=== PATIENT | female | born 1970 | race Caucasian/White ===

== ENCOUNTER 2021-11-02 18:11 | Inpatient (IN) | payer MEDICARE, SELFPAY ==
[2021-11-02 18:17] VITALS: BMI 32.9
[2021-11-02 18:18] VITALS: BP 124/94; PULSE 84; RESP 18; TEMP 36.6; O2SAT 96
[2021-11-02 19:45] VITALS: BP 117/80; PULSE 104; RESP 16; TEMP 36.7; O2SAT 997
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
[2021-11-02] MEDS: gabapentin 400 mg Capsule PO (21:44)
[2021-11-02] MEDS: trazodone 100 mg Tablet PO (21:44)
[2021-11-02] MEDS: HYDROcodone-acetaminophen 5-325 mg Tablet 1 TAB PO (21:44)
[2021-11-03 06:00] VITALS: BP 126/82; PULSE 67; RESP 16; O2SAT 99
[2021-11-03] MEDS: HYDROcodone-acetaminophen 5-325 mg Tablet 1 TAB PO ×3 (08:52→20:35)
[2021-11-03] MEDS: cloNIDine 0.1 mg Tablet 0.2 MG PO (08:52)
[2021-11-03] MEDS: gabapentin 400 mg Capsule PO ×3 (08:53→20:33)
[2021-11-03] MEDS: valACYclovir 1,000 mg Tablet 500 MG PO (08:53)
[2021-11-03] MEDS: levothyroxine 112 mcg Tablet PO (08:53)
[2021-11-03] MEDS: lisinopril 20 mg Tablet PO (08:53)
[2021-11-03] MEDS: hydroCHLOROthiazide 25 mg Tablet PO (08:53)
[2021-11-03] MEDS: lamoTRIgine 100 mg Tablet 150 MG PO (08:54)
[2021-11-03] MEDS: potassium chloride ER 10 mEq Tablet PO (08:54)
[2021-11-03] MEDS: duloxetine 60 mg Capsule 120 MG PO (08:54)
[2021-11-03] MEDS: propranolol 20 mg Tablet PO ×2 (08:54→20:33)
--- NOTE | 2021-11-03 11:04 | W.PM.NPUH&PS ---
Providers/Chief Complaint Admitting Physician: Clarence Enriquez MD [facility] NPU History of Present Illness Gwen Flores is a 50 year old female who comes from an outside emergency department with the following report: Patient is a 50-year-old female who comes via police and presents for evaluation of suicidal ideation and suicidal plan.? It is unknown how the patient got to the emergency department today.? Patient states that she was taken off of her antipsychotic recently and has had increased feelings of suicide.? Patient has feelings of suicide chronically but today she developed a plan to overdose on medication pills.? Patient did not try to use this plan today.? She states that she has had 6 suicide attempts in the past and her mental illness managed by other providers.? Patient is okay on staying on psych hold if that is what she needs.? Patient has a history of anxiety depression and bipolar disease. She says that the problem is that she was on Latuda 80 mg which was working somewhat but not great. Unfortunately she had akathisia and they discontinued it because she has had difficulties with that in the past and has also had difficulties with tardive dyskinesia. Both Geodon and risperidone have caused tardive dyskinesia. She cannot really see it but many people have commented on her lips quivering and moving when she was on those 2 medications. She is also had akathisia from Geodon Abilizakiay and Saphris. Inderal was tried at one point for the akathisia but it was not helpful. Zyprexa and Seroquel were not effective. When the Latuda was discontinued she became very depressed and suicidal. She does not want to take Rexulti because she said in the reports that 9% of people had akathisia. She was on lithium for about 1 year with good benefit 10 or 12 years ago. She said it stopped working and she also developed a hand tremor. Propranolol was not tried for the hand tremor at that time. She is currently on lisinopril with hydrochlorothiazide which makes lithium was somewhat difficult choice. She was educated about the importance of maintaining the hydrochlorothiazide at a constant dose along with the lithium. The likelihood of finding an antipsychotic that would be tolerated are somewhat low. She has been hospitalized numerous times. She has attempted suicide 6 times. She says that she is diagnosed with bipolar disorder, anxiety and depression. Meds NPU Home Medications Medication Instructions Recorded Confirmed Last Taken Type cholecalciferol (vitamin D3) 1,250 50,000 mcg PO DIRECTED 11/02/21 11/02/21 Unknown History mcg (50,000 unit) capsule clonidine HCl 0.1 mg tablet 0.1 mg PO DAILY 11/02/21 11/02/21 Unknown History clonidine HCl 0.2 mg tablet 0.2 mg PO DAILY 11/02/21 11/02/21 Unknown History diclofenac sodium 1 % topical gel 1 ea TOPICAL 11/02/21 Unknown History duloxetine 60 mg capsule,delayed 60 mg PO DAILY 11/02/21 11/02/21 Unknown History release duloxetine 60 mg capsule,delayed 60 mg PO DAILY 11/02/21 11/02/21 Unknown History release duloxetine 60 mg capsule,delayed 120 mg PO DAILY 11/02/21 11/02/21 Unknown History release (Cymbalta) gabapentin 800 mg PO DAILY 11/02/21 11/02/21 Unknown History gabapentin 400 mg capsule 400 mg PO TID 11/02/21 11/02/21 Unknown History hydrocodone 10 mg-acetaminophen 1 tab PO BID PRN 11/02/21 11/02/21 Unknown History 325 mg tablet hydrocodone 10 mg-acetaminophen 5 - 325 tab PO QID 11/02/21 11/02/21 Unknown History 325 mg tablet lamotrigine 150 mg tablet 150 mg PO BID 11/02/21 11/02/21 Unknown History (Lamictal) levothyroxine 112 mcg tablet 112 mcg PO DAILY 11/02/21 11/02/21 Unknown History levothyroxine 112 mcg tablet 112 mcg PO DAILY 11/02/21 11/02/21 Unknown History lisinopril 20 1 tab PO DAILY 11/02/21 11/02/21 Unknown History mg-hydrochlorothiazide 25 mg tablet lisinopril 20 20 - 25 tab PO DAILY 11/02/21 11/02/21 Unknown History mg-hydrochlorothiazide 25 mg tablet modafinil 100 mg tablet 100 mg PO DAILY 11/02/21 11/02/21 Unknown History modafinil 100 mg tablet 100 mg PO DAILY 11/02/21 11/02/21 Unknown History potassium chloride 10 mEq 10 meq PO DAILY 11/02/21 11/02/21 Unknown History capsule,extended release promethazine 25 mg tablet 25 mg PO PRN 11/02/21 11/02/21 Unknown History promethazine 25 mg tablet 25 mg PO Q6H PRN 11/02/21 11/02/21 Unknown History propranolol 20 mg tablet 20 mg PO BID 11/02/21 11/02/21 Unknown History tizanidine 2 mg capsule 2 mg PO Q8H PRN 11/02/21 11/02/21 Unknown History tizanidine 4 mg tablet 2 mg PO QID 11/02/21 11/02/21 Unknown History trazodone 100 mg tablet 100 mg PO BEDTIME 11/02/21 11/02/21 Unknown History valacyclovir 500 mg tablet 500 mg PO DAILY 11/02/21 11/02/21 Unknown History valacyclovir 500 mg tablet 500 mg PO DAILY 11/02/21 11/02/21 Unknown History (Valtrex) Allergies Allergy/AdvReac Type Severity Reaction Status Date / Time amoxicillin Allergy ALGY-Difficulty Verified 11/02/21 18:29 Swallowing Estrogens Allergy ADR-Vomitin Verified 11/02/21 18:29 g Mental Status Exam MSE Comments: This is a 50-year old female who appears approximately her stated age and is in no acute distress. Her grooming is fair. She was in bed at 10:30 AM. Psychomotor activity is normal. She is dressed in hospital scrubs. psychomotor activity is normal. Speech is at a regular rate and rhythm, normal volume, good articulation, not pressured. Alert, oriented X3 Attention and concentration appears to be normal. Memory is intact Mood is depressed. Affect is moderately dysphoric. Thought process is logical and goal-directed. Thought content: Denies auditory and visual hallucinations. No delusions or paranoia are noted. She reports continued suicidal ideation but no plan in the hospital and no homicidal ideation. Fund of knowledge is average. Insight and judgment appear to be fair. Impulse control is fair. Vitals/I&O/Wt Last Vital Signs Temp 98.0 F 11/02/21 19:45 Pulse 67 11/03/21 06:00 Resp 16 11/03/21 06:00 BP 126/82 11/03/21 06:00 Pulse Ox 99 11/03/21 06:00 Weight last 48 hrs Weight 87.09 kg A&P Assessment and plan (1) Anxiety: Status: Acute (2) Major depressive disorder: Status: Acute (3) Bipolar 1 disorder, depressed: Status: Acute Plan This is a 50-year-old female who reports worsening depression after discontinuing Latuda due to akathisia. She has had many side effects from many different antipsychotics. She had a good response to lithium in the past and would like to try that again. She understands that it is not the best choice because she is on hydrochlorothiazide and understands the risks and need to keep the hydrochlorothiazide stable and avoid nonsteroidal anti-inflammatory agents. Plan: 1. Continue current medication. Add lithium 300 mg twice daily 2. Continue every 15 minute checks for safety. 3. Encourage individual, group and milieu therapies. 4. Encourage sober living treatment after discharge at the highest level of care to which she is willing to commit. 5. We will monitor for safety for herself in the community prior to discharge. Involuntary Hold Information 96 Hour Hold: 96 Hour Involuntary Admission: No Attestations NPU Medical Necessity Statement*: Inpatient hospitalization is medically necessary and the clinically appropriate intervention at this time. We will initiate medications and make changes as indicated. She will be in the hospital for over 2 midnights. Likely length of stay 4-6 days Coding Level of Care Code Acute Professor Of Nursing for Lyla Goss Diagnoses Anxiety F41.9 Major depressive disorder F32.9 Bipolar 1 disorder, depressed F31.9
[2021-11-03 14:00] VITALS: BP 104/60; PULSE 80; RESP 16; TEMP 36.9; O2SAT 96
[2021-11-03 20:28] VITALS: BP 103/70; PULSE 86; RESP 19; TEMP 36.6; O2SAT 98
[2021-11-03] MEDS: duloxetine 60 mg Capsule PO (20:33)
[2021-11-03] MEDS: lithium carbonate 300 mg Capsule PO (20:33)
[2021-11-03] MEDS: lamoTRIgine 100 mg Tablet 200 MG PO (20:33)
[2021-11-03] MEDS: trazodone 100 mg Tablet PO (20:33)
[2021-11-03] MEDS: tizanidine 4 mg Tablet 2 MG PO (20:36)
[2021-11-03] MEDS: promethazine 25 mg Tablet PO (20:39)
[2021-11-04] VITALS (10 sets, daily range): BP systolic 70–104; BP diastolic 51–70; PULSE 69–82; RESP 15–17; TEMP 36.6–36.8; O2SAT 94–97
[2021-11-04] MEDS: duloxetine 60 mg Capsule PO ×2 (08:24→20:45)
[2021-11-04] MEDS: gabapentin 400 mg Capsule PO ×3 (08:24→20:45)
[2021-11-04] MEDS: valACYclovir 1,000 mg Tablet 500 MG PO (08:24)
[2021-11-04] MEDS: lamoTRIgine 100 mg Tablet 200 MG PO ×2 (08:24→20:45)
[2021-11-04] MEDS: cloNIDine 0.1 mg Tablet 0.2 MG PO (08:24)
[2021-11-04] MEDS: propranolol 20 mg Tablet PO (08:25)
[2021-11-04] MEDS: HYDROcodone-acetaminophen 5-325 mg Tablet 1 TAB PO ×3 (08:25→20:48)
[2021-11-04] MEDS: levothyroxine 112 mcg Tablet PO (08:25)
[2021-11-04] MEDS: hydroCHLOROthiazide 25 mg Tablet PO (08:25)
[2021-11-04] MEDS: lithium carbonate 300 mg Capsule PO ×2 (08:25→20:45)
[2021-11-04] MEDS: potassium chloride ER 10 mEq Tablet PO (08:25)
[2021-11-04] MEDS: lisinopril 20 mg Tablet PO (08:25)
--- NOTE | 2021-11-04 11:31 | P.NPUPN_ITS ---
Subjective NPU Subjective: She has not felt any side effects from the lithium thus far. She has had 2 doses. She had low blood pressure this morning. She feels like normally the modafinil counteracts the blood pressure medications. She said that the clonidine was added because her blood pressure was still very high with the other medications. Propranolol was recently added to help with the akathisia from the Latuda which is already been discontinued. She agreed to stop both of those medications. She will be given the modafinil when it arrives from the other pharmacy. We will see what the blood pressure is tomorrow with the modafinil and not the clonidine and propranolol. Mental Status Exam MSE Comments: This is a 50-year old female who appears approximately her stated age and is in no acute distress. Her grooming is fair. She was in bed at 11 AM. Psychomotor activity is decreased because of the low blood pressure and being in bed. She is dressed in hospital scrubs. psychomotor activity is normal. Speech is at a regular rate and rhythm, normal volume, good articulation, not pressured. Alert, oriented X3 Attention and concentration appears to be normal. Memory is intact Mood is depressed. Affect is moderately dysphoric. Thought process is logical and goal-directed. Thought content: Denies auditory and visual hallucinations. No delusions or paranoia are noted. She reports continued suicidal ideation but no plan in the hospital and no homicidal ideation. Fund of knowledge is average. Insight and judgment appear to be fair. Impulse control is fair. Cognition: Patient Appearance: Appropriate Ability to Follow Directions: Excellent Patient Orientation (long list): Person, Place, Time, Name, Month and Year Comprehension Ability: No Impairment Hallucination Type: None Delusion Description: Not Present Thought Process: Appropriate Affect: Affect Description: Flat Behavior: Patient Behavior: Cooperative Speech Pattern: Clear Vitals/I&O/Wt Last Vital Signs Temp 97.9 F 11/04/21 06:00 Pulse 72 11/04/21 06:00 Resp 16 11/04/21 06:00 BP 104/69 11/04/21 06:00 Pulse Ox 94 11/04/21 06:00 Weight last 48 hrs Weight 87.09 kg A&P Assessment and plan (1) Anxiety: Status: Acute (2) Major depressive disorder: Status: Acute (3) Bipolar 1 disorder, depressed: Status: Acute Plan This is a 50-year-old female who reports worsening depression after discontinuing Latuda due to akathisia. She has had many side effects from many different antipsychotics. She had a good response to lithium in the past and would like to try that again. She understands that it is not the best choice because she is on hydrochlorothiazide and understands the risks and need to keep the hydrochlorothiazide stable and avoid nonsteroidal anti-inflammatory agents. Plan: 1. Continue current medication. Add lithium 300 mg twice daily. Stop clonidine and propranolol for now. 2. Continue every 15 minute checks for safety. 3. Encourage individual, group and milieu therapies. 4. Encourage sober living treatment after discharge at the highest level of care to which she is willing to commit. 5. We will monitor for safety for herself in the community prior to discharge. Involuntary Hold Information 96 Hour Hold: 96 Hour Involuntary Admission: No Attestations NPU Medical Necessity Statement*: Inpatient hospitalization is medically necessary and the clinically appropriate intervention at this time. We will initiate medications and make changes as indicated. Coding Level of Care Code Acute Casting Machine Set Up Operator for Lyla Goss Diagnoses Anxiety F41.9 Major depressive disorder F32.9 Bipolar 1 disorder, depressed F31.9
[2021-11-04] MEDS: MODAFINIL 200 MG 200 EACH PO (13:27)
--- NOTE | 2021-11-04 13:58 | PC.NURSE ---
BLOOD PRESSURE PT UP TO NURSE'S STATION AT APPROXIMATELY 1055 AND ASKED NURSING STAFF TO CHECK HER BP. PT SAT ON BENCH NEAR NURSE'S STATION AND BP WAS OBTAINED WITH READING OF 70/52. PT WAS ESCORTED TO HER BED TO LIE DOWN. DR. SANCHES WAS INFORMED OF THIS AND ASKED NURSING STAFF TO CONTINUE TO MONITOR PT AND OBTAIN FREQUENT VITALS. THE FOLLOWING READING WERE OBTAINED, AT 1100: 88/63, 1108: 88/61, 1115: 87/59, 1130: 79/55, AND 1208: 82/56. AT APPROXIMATELY 1210 PT WAS ESCORTED TO THE DAY AREA FOR LUNCH. AT 1234 PT APPROACHED NURSE'S STATION AND VOICED THAT SHE WAS FEELING MUCH BETTER. BP OBTAINED AT THAT TIME AND RESULT WAS 82/58. DR. SANCHES INFORMED OF PT'S VITALS AND ASKED THAT NURSING STAFF CONTINUE TO MONITOR PT. PT REPORTS THAT SHE TAKE MODAFINIL ALONG WITH HER BLOOD PRESSURE MEDICATIONS AND THAT KEEPS HER PRESSURE FROM DROPPING. MODAFINIL IS NON-FORMULARY, BUT DIRECTOR SPECIAL EDUCATION CONTACTED THE [facility] PER DR. SANCHES REQUEST AND THEY WERE ABLE TO FILL A 7 DAY SUPPLY. THIS WAS THEN BROUGHT TO THE [facility] TO BE CHECKED IN FOR INPATIENT USE. THE MODAFINIL IS NOW ON THE UNIT AND NURSING STAFF HAVE ADMINISTERED DAILY DOSE FOR 11/04/21. WILL CONTINUE TO MONITOR PT AND RE-CHECK BP.
--- NOTE | 2021-11-04 15:31 | PC.SOCIAL ---
Patient did not attend group.
[2021-11-04] MEDS: promethazine 25 mg Tablet PO ×2 (15:40→21:37)
[2021-11-04] MEDS: trazodone 100 mg Tablet PO (20:45)
[2021-11-04] MEDS: calcium carbonate 500 mg Chew Tablet 1000 MG PO (21:38)
[2021-11-05] MEDS: trazodone 50 mg Tablet PO (00:13)
[2021-11-05] MEDS: hyDROXYzine 25 mg Capsule 50 MG PO ×2 (02:46→20:45)
[2021-11-05 06:00] VITALS: BP 117/77; PULSE 71; RESP 16; TEMP 36.6; O2SAT 95
--- NOTE | 2021-11-05 06:09 | PC.NURSE ---
2047 Patient requested a pain pill for back pain. Hydrocodone-apap 1 tab was given. 2137 Patient with c/o of nausea and heartburn. Tums and promethazine givn for symptoms. Possible nausea from pain pill. 0013 Patient stating that she can't sleep. Trazadone 50mg po given for insomnia. 0246 Patient stating she still can't sleep. Vistaril 50mg po given for restlessness. 0400 Patient is resting quietly in bed. Meds effective.
[2021-11-05] MEDS: hydroCHLOROthiazide 25 mg Tablet PO (09:09)
[2021-11-05] MEDS: levothyroxine 112 mcg Tablet PO (09:09)
[2021-11-05] MEDS: gabapentin 400 mg Capsule PO ×3 (09:09→20:44)
[2021-11-05] MEDS: valACYclovir 1,000 mg Tablet 500 MG PO (09:09)
[2021-11-05] MEDS: lithium carbonate 300 mg Capsule PO ×3 (09:10→20:45)
[2021-11-05] MEDS: lamoTRIgine 100 mg Tablet 200 MG PO ×2 (09:10→20:44)
[2021-11-05] MEDS: potassium chloride ER 10 mEq Tablet PO (09:10)
[2021-11-05] MEDS: HYDROcodone-acetaminophen 5-325 mg Tablet 1 TAB PO ×3 (09:10→23:16)
[2021-11-05] MEDS: duloxetine 60 mg Capsule PO ×2 (09:10→20:45)
[2021-11-05] MEDS: lisinopril 20 mg Tablet PO (09:10)
[2021-11-05] MEDS: MODAFINIL 200 MG 200 EACH PO (09:11)
--- NOTE | 2021-11-05 12:54 | P.NPUPN_ITS ---
Subjective NPU Subjective: She is feeling better. She thinks that the lithium might be helping. She has relieved to find out that her dog is in abdominal control and that her friend is going to try to get him out and take care of him until she is out of the hospital. She denies any suicidal ideation. Her puppy is being trained as a service dog. He will get them between her and another person if that person is getting in her space. She has a lot of anxiety when that happens. She gets overwhelmed easily when she is out in public. Her cat is her emotional support animal. She has not had any side effects from the lithium. We talked about possibly changing her blood pressure medication if the lithium works for her. It would be best not to be on hydrochlorothiazide along with the lithium. We will get a lithium level tomorrow. Mental Status Exam MSE Comments: This is a 50-year old female who appears approximately her stated age and is in no acute distress. Her grooming is fair. She was in bed at 11 AM. Psychomotor activity is decreased because of the low blood pressure and being in bed. She is dressed in hospital scrubs. psychomotor activity is normal. Speech is at a regular rate and rhythm, normal volume, good articulation, not pressured. Alert, oriented X3 Attention and concentration appears to be normal. Memory is intact Mood is depressed. Affect is moderately dysphoric. Thought process is logical and goal-directed. Thought content: Denies auditory and visual hallucinations. No delusions or paranoia are noted. She reports continued suicidal ideation but no plan in the hospital and no homicidal ideation. Fund of knowledge is average. Insight and judgment appear to be fair. Impulse control is fair. Cognition: Patient Appearance: Appropriate Ability to Follow Directions: Excellent Patient Orientation (long list): Person, Place, Time, Name, Month and Year Comprehension Ability: No Impairment Hallucination Type: None Delusion Description: Not Present Thought Process: Appropriate Affect: Affect Description: Calm Behavior: Patient Behavior: Cooperative Speech Pattern: Clear Vitals/I&O/Wt Last Vital Signs Temp 97.9 F 11/05/21 06:00 Pulse 71 11/05/21 06:00 Resp 16 11/05/21 06:00 BP 117/77 11/05/21 06:00 Pulse Ox 95 11/05/21 06:00 A&P Assessment and plan (1) Anxiety: Status: Acute (2) Major depressive disorder: Status: Acute (3) Bipolar 1 disorder, depressed: Status: Acute Plan This is a 50-year-old female who reports worsening depression after discontinuing Latuda due to akathisia. She has had many side effects from many different antipsychotics. She had a good response to lithium in the past and would like to try that again. She understands that it is not the best choice because she is on hydrochlorothiazide and understands the risks and need to keep the hydrochlorothiazide stable and avoid nonsteroidal anti-inflammatory agents. Plan: 1. Continue current medication. Add lithium 300 mg twice daily. Stop clonidine and propranolol for now. [place] level tomorrow 2. Continue every 15 minute checks for safety. 3. Encourage individual, group and milieu therapies. 4. Encourage sober living treatment after discharge at the highest level of care to which she is willing to commit. 5. We will monitor for safety for herself in the community prior to discharge. Involuntary Hold Information 96 Hour Hold: 96 Hour Involuntary Admission: No Attestations NPU Medical Necessity Statement*: Inpatient hospitalization is medically necessary and the clinically appropriate intervention at this time. We will initiate medications and make changes as indicated. Coding Level of Care Code Acute Gambling Dealer for Lyla Goss Diagnoses Anxiety F41.9 Major depressive disorder F32.9 Bipolar 1 disorder, depressed F31.9
[2021-11-05 13:48] VITALS: BP 109/69; PULSE 77; RESP 16; TEMP 36.6; O2SAT 96
[2021-11-05 20:05] VITALS: BP 103/71; PULSE 99; RESP 16; TEMP 37; O2SAT 97
[2021-11-05] MEDS: trazodone 100 mg Tablet PO (20:45)
[2021-11-05] MEDS: tizanidine 4 mg Tablet 2 MG PO (20:45)
[2021-11-05] MEDS: OLANZapine 5 mg ODT PO (23:17)
[2021-11-06] MEDS: HYDROcodone-acetaminophen 5-325 mg Tablet 1 TAB PO ×4 (05:51→22:30)
[2021-11-06 06:00] VITALS: BP 111/75; PULSE 74; RESP 17; TEMP 36.9; O2SAT 97
[2021-11-06 06:59] LABS: Lithium 0.9 mmol/L (0.6-1.2)
[2021-11-06] MEDS: lithium carbonate 300 mg Capsule PO ×3 (09:40→20:36)
[2021-11-06] MEDS: potassium chloride ER 10 mEq Tablet PO (09:40)
[2021-11-06] MEDS: lamoTRIgine 100 mg Tablet 200 MG PO ×2 (09:40→20:36)
[2021-11-06] MEDS: hydroCHLOROthiazide 25 mg Tablet PO (09:41)
[2021-11-06] MEDS: levothyroxine 112 mcg Tablet PO (09:41)
[2021-11-06] MEDS: lisinopril 20 mg Tablet PO (09:41)
[2021-11-06] MEDS: duloxetine 60 mg Capsule PO ×2 (09:41→20:36)
[2021-11-06] MEDS: gabapentin 400 mg Capsule PO ×3 (09:42→20:37)
[2021-11-06] MEDS: valACYclovir 1,000 mg Tablet 500 MG PO (09:42)
[2021-11-06] MEDS: tizanidine 4 mg Tablet 2 MG PO ×2 (09:46→16:28)
--- NOTE | 2021-11-06 13:08 | W.PM.NPUPNS ---
Subjective NPU Subjective: She said that she is feeling better. She feels like the lithium has been helpful. Her level this morning was 0.9. She complains of a lot of pain. She says it is from the mattress and from the chairs. She says that she takes the tizanidine and the [place] at the same time it is helpful but they did not let her do that last night. I did let her do that this morning. She would also like to take a Tylenol along with the [place] so that she gets a full dose of Tylenol with that. Mental Status Exam MSE Comments: This is a 50-year old female who appears approximately her stated age and is in no acute distress. Her grooming is fair. She was in bed at 1 PM and appeared to be somewhat in pain. She is dressed in hospital scrubs. psychomotor activity is normal. Speech is at a regular rate and rhythm, normal volume, good articulation, not pressured. Alert, oriented X3 Attention and concentration appears to be normal. Memory is intact Mood is depressed but better Affect is moderately dysphoric partly because of pain. Thought process is logical and goal-directed. Thought content: Denies auditory and visual hallucinations. No delusions or paranoia are noted. She denies any suicidal ideation and no homicidal ideation. Fund of knowledge is average. Insight and judgment appear to be fair. Impulse control is fair. Cognition: Patient Appearance: Disheveled/Poor Hygiene Ability to Follow Directions: Excellent Patient Orientation (long list): Person, Place, Time, Name, Birthday, Day of Month, Month and Year Comprehension Ability: No Impairment Hallucination Type: None Delusion Description: Not Present Thought Process: Appropriate Affect: Affect Description: Appropriate and Calm Behavior: Patient Behavior: Appropriate and Cooperative Speech Pattern: Appropriate and Clear Vitals/I&O/Wt Last Vital Signs Temp 98.5 F 11/06/21 06:00 Pulse 74 11/06/21 06:00 Resp 17 11/06/21 06:00 BP 111/75 11/06/21 06:00 Pulse Ox 97 11/06/21 06:00 A&P Assessment and plan (1) Anxiety: Status: Acute (2) Major depressive disorder: Status: Acute (3) Bipolar 1 disorder, depressed: Status: Acute Plan This is a 50-year-old female who reports worsening depression after discontinuing Latuda due to akathisia. She has had many side effects from many different antipsychotics. She had a good response to lithium in the past and would like to try that again. She understands that it is not the best choice because she is on hydrochlorothiazide and understands the risks and need to keep the hydrochlorothiazide stable and avoid nonsteroidal anti-inflammatory agents. Plan: 1. Continue current medication. Continue lithium 300 mg twice daily. 2. Continue every 15 minute checks for safety. 3. Encourage individual, group and milieu therapies. 4. Encourage sober living treatment after discharge at the highest level of care to which she is willing to commit. 5. We will monitor for safety for herself in the community prior to discharge. Involuntary Hold Information 96 Hour Hold: 96 Hour Involuntary Admission: No Attestations NPU Medical Necessity Statement*: Inpatient hospitalization is medically necessary and the clinically appropriate intervention at this time. We will initiate medications and make changes as indicated. Coding Level of Care Code Acute Orthopedic Shoes Salesperson for Lyla Goss Diagnoses Anxiety F41.9 Major depressive disorder F32.9 Bipolar 1 disorder, depressed F31.9
[2021-11-06 14:00] VITALS: BP 91/58; PULSE 94; RESP 17; TEMP 36.4; O2SAT 97
[2021-11-06 20:29] VITALS: BP 85/57; PULSE 88; RESP 16; TEMP 36.5; O2SAT 97
[2021-11-06] MEDS: trazodone 100 mg Tablet PO (20:37)
[2021-11-06] MEDS: efferdent effervescent 1 EACH DENTAL (22:23)
[2021-11-06] MEDS: hyDROXYzine 25 mg Capsule 50 MG PO (22:30)
[2021-11-07] MEDS: trazodone 50 mg Tablet PO (02:06)
[2021-11-07] MEDS: cetylpyridinium Lozenge 1 EACH MUCOUS MEM ×2 (02:06→09:57)
[2021-11-07] MEDS: tizanidine 4 mg Tablet 2 MG PO ×2 (02:06→09:42)
--- NOTE | 2021-11-07 02:34 | PC.NURSE ---
PRN ADMIN: Peng c/o pain and anxiety, at approx 2100, PRN hydrocodone and hydroxyzine given as ordered with noted effectiveness. Patient also c/o sore throat and requested lozenges, given as ordered. Patient woke up and c/o of generalized muscle pain and trouble sleeping. Givent PRN tizanidine and PRN trazodone with noted effectiveness.
[2021-11-07 06:00] VITALS: BP 107/72; PULSE 69; RESP 16; TEMP 36.8; O2SAT 98
[2021-11-07] MEDS: hydroCHLOROthiazide 25 mg Tablet PO (09:41)
[2021-11-07] MEDS: potassium chloride ER 10 mEq Tablet PO (09:41)
[2021-11-07] MEDS: levothyroxine 112 mcg Tablet PO (09:41)
[2021-11-07] MEDS: gabapentin 400 mg Capsule PO (09:41)
[2021-11-07] MEDS: HYDROcodone-acetaminophen 5-325 mg Tablet 1 TAB PO (09:41)
[2021-11-07] MEDS: lithium carbonate 300 mg Capsule PO (09:42)
[2021-11-07] MEDS: lisinopril 20 mg Tablet PO (09:43)
[2021-11-07] MEDS: valACYclovir 1,000 mg Tablet 500 MG PO (09:43)
[2021-11-07] MEDS: duloxetine 60 mg Capsule PO (09:58)
[2021-11-07] MEDS: lamoTRIgine 100 mg Tablet 200 MG PO (09:58)
--- NOTE | 2021-11-07 12:15 | P.NPUDS_ITS ---
Diagnoses at Discharge Discharge Diagnosis (1) Anxiety: Status: Acute (2) Major depressive disorder: Status: Acute (3) Bipolar 1 disorder, depressed: Status: Acute Reason for Visit Reason for Visit: Brief History: History of Present Illness Gwen Flores is a 50 year old female who comes from an outside emergency department with the following report: Patient is a 50-year-old female who comes via police and presents for evaluation of suicidal ideation and suicidal plan.? It is unknown how the patient got to the emergency department today.? Patient states that she was taken off of her antipsychotic recently and has had increased feelings of suicide.? Patient has feelings of suicide chronically but today she developed a plan to overdose on medication pills.? Patient did not try to use this plan today.? She states that she has had 6 suicide attempts in the past and her mental illness managed by other providers.? Patient is okay on staying on psych hold if that is what she needs.? Patient has a history of anxiety depression and bipolar disease. She says that the problem is that she was on Latuda 80 mg which was working somewhat but not great.? Unfortunately she had akathisia and they discontinued it because she has had difficulties with that in the past and has also had difficulties with tardive dyskinesia.? Both Geodon and risperidone have caused tardive dyskinesia.? She cannot really see it but many people have commented on her lips quivering and moving when she was on those 2 medications.? She is also had akathisia from Geodon Abilify and Saphris.? Inderal was tried at one point for the akathisia but it was not helpful. Zyprexa and Seroquel were not effective.? When the Latuda was discontinued she became very depressed and suicidal.? She does not want to take Rexulti because she said in the reports that 9% of people had akathisia.? She was on lithium for about 1 year with good benefit 10 or 12 years ago.? She said it stopped working and she also developed a hand tremor.? Propranolol was not tried for the hand tremor at that time. She is currently on lisinopril with hydrochlorothiazide which makes lithium was somewhat difficult choice.? She was educated about the importance of maintaining the hydrochlorothiazide at a constant dose along with the lithium.? The likelihood of finding an antipsychotic that would be tolerated are somewhat low.? She has been hospitalized numerous times.? She has attempted suicide 6 times.? She says that she is diagnosed with bipolar disorder, anxiety and depression. Hospital Course Hospital Course She slowly acclimated to the individual, group and milieu therapies provided. She was started on lithium and gradually increased to 3 times a day. Her level was 0.9. She takes hydrochlorothiazide 25 mg daily and was warned about what to do if her level got higher and she had side effects. She was also advised against taking nonsteroidal anti-inflammatories which she cannot because of her gastric bypass. She denied any side effects from the lithium. She tolerated these doses and showed steady improvement during her stay. She was able to contract for safety outside hospital prior to discharge. During the hospita lization, patient had routine laboratory studies which were within normal limits except for few outliers. Additionally there was a general medical evaluation which was also within normal limits and revealed no new acute processes. Discharge Summary: At the time of discharge, lethality was denied. Mood and anxiety were well managed. Patient endorsed a plan to follow-up with the aftercare recom mendations of the treatment team. Patient was evaluated and deemed to be absent credible lethality, and had achieved the maximum benefit from an inpatient hospitalization, so was discharged. Involuntary Hold Information 96 Hour Hold: 96 Hour Involuntary Admission: No Mental Status Exam MSE Comments: This is a 50-year old female who appears approximately her stated age and is in no acute distress. Her grooming is fair. She was in in the day room eating lunch at 12 PM and appeared to be somewhat in pain. She is dressed in hospital scrubs. psychomotor activity is normal. Speech is at a regular rate and rhythm, normal volume, good articulation, not pressured. Alert, oriented X3 Attention and concentration appears to be normal. Memory is intact Mood is 75% better. Affect is euthymic Thought process is logical and goal-directed. Thought content: Denies auditory and visual hallucinations. No delusions or paranoia are noted. She denies any suicidal ideation and no homicidal ideation. Fund of knowledge is average. Insight and judgment appear to be fair. Impulse control is fair. Cognition: Patient Appearance: Appears Older than Age Ability to Follow Directions: Excellent Patient Orientation (long list): Person, Place, Time, Name, Birthday, Day of Month, Month and Year Comprehension Ability: No Impairment Hallucination Type: None Delusion Description: Not Present Thought Process: Appropriate Affect: Affect Description: Appropriate Behavior: Patient Behavior: Appropriate and Cooperative Speech Pattern: Appropriate and Clear Discharge Data Studies Completed and Pending: Laboratory Results [place] 0.9 mmol/L (0.6-1 .2) 11/06/21 06:15 Vitals: Last Vital Signs Temp 98.3 F 11/07/21 06:00 Pulse 69 11/07/21 06:00 Resp 16 11/07/21 06:00 BP 107/72 11/07/21 06:00 Pulse Ox 98 11/07/21 06:00 Discharge Plan Discharge Patient Disposition: Home Condition: Stable Prescriptions: New lithium carbonate 300 mg Capsule 300 mg PO TID 30 Days Qty: 90 1RF Continued lamotrigine [Lamictal] 150 mg Tablet 150 mg PO BID 0RF gabapentin 800 mg PO DAILY 0RF Valtrex 500 mg Tablet 500 mg PO DAILY 0RF trazodone 100 mg Tablet 100 mg PO BEDTIME 0RF promethazine 25 mg Tablet 25 mg PO Q6H PRN (Reason: Nausea And Vomiting) 0RF lisinopril-hydrochlorothiazide 20-25 mg Tablet 1 tab PO DAILY 0RF levothyroxine 112 mcg Tablet 112 mcg PO DAILY 0RF modafinil 100 mg Tablet 100 mg PO DAILY 0RF Cymbalta 60 mg Capsule,Delayed Release(Dr/Ec) 120 mg PO DAILY 0RF tizanidine 2 mg Capsule 2 mg PO Q8H PRN (Reason: Spasms) 0RF cholecalciferol (vitamin D3) 1,250 mcg (50,000 unit) Capsule 50,000 mcg PO DIRECTED 0RF Rx Instructions: EVERY 2 WEEKS duloxetine 60 mg capsule,delayed release(DR/EC) 60 mg PO DAILY 0RF gabapentin 400 mg capsule 400 mg PO TID 0RF hydrocodone-acetaminophen 10-325 mg tablet 5 - 325 tab PO QID 0RF levothyroxine 112 mcg tablet 112 mcg PO DAILY 0RF lisinopril-hydrochlorothiazide 20-25 mg tablet 20 - 25 tab PO DAILY 0RF modafinil 100 mg tablet 100 mg PO DAILY 0RF potassium chloride 10 mEq capsule, extended release 10 meq PO DAILY 0RF promethazine 25 mg tablet 25 mg PO PRN 0RF valacyclovir 500 mg tablet 500 mg PO DAILY 0RF duloxetine 60 mg capsule,delayed release(DR/EC) 60 mg PO DAILY 0RF Discontinued clonidine HCl 0.2 mg Tablet 0.2 mg PO DAILY 0RF propranolol 20 mg tablet 20 mg PO BID 0RF tizanidine 4 mg tablet 2 mg PO QID 0RF Discharge Orders: Discharge Order (Routine); Ordered 11/07/21 Ordered By: Clarence Enriquez Referrals: [facility]-Dr. Deangelo Quintero [Other] - 11/18/21 2:10 pm (If appoinment needs to be sooner can do a walk in. ) [facility] [Other] - 01/02/22 12:00 pm (With therapist Ab Walker. Can do walk in. ) Discharge Diet: Regular Discharge Activity: Resume usual activity Patient Instructions: Opioid Safety Discharge Attestations NPU Time Spent in Discharge Care*: less than 30 min Specific Discharge Activities: Specific discharge activities: educating patient, discussing with clinical case manager/social workers/dc planners, documenting/other paperwork and evaluating patient/reviewing data Coding Level of Care Code Acute Chg FW DC note Diagnoses Anxiety F41.9 Major depressive disorder F32.9 Bipolar 1 disorder, depressed F31.9
[2021-11-07 12:54] VITALS: BP 107/72; PULSE 69; RESP 16; TEMP 36.8; O2SAT 98
--- NOTE | 2021-11-07 13:50 | PC.SOCIAL ---
Patient did not attend group.
--- NOTE | 2021-11-07 13:52 | DCPLANNER ---
Imm was printed and copied and given and explained to pt. Placed in chart.
--- NOTE | 2021-11-07 13:57 | PC.NURSE ---
Discharge Note All discharge teaching completed and reviewed next appointment dates. All belongings given to patient with property sheet signed. Home medications given back with 1 hydrocodone. Patient signed that she did receive medications. Patient verbalizes understanding. Discharge packet sent with patient.Discharged via [employer] vehicle and is returning back to [facility]. VSS, no distress noted. Denies pain upon discharge. Left unit at 1400.
== END 2021-11-07 14:00 | disposition home or self-care (01) | DRG 885 ==
PROVIDERS: Admitting Provider Psychiatry & Neurology Psychiatry; Visit Provider Psychiatry & Neurology Psychiatry
DX: F31.9 Bipolar disorder, unspecified (principal); R45.851 Suicidal ideations; F41.9 Anxiety disorder, unspecified; Z91.51 Personal history of suicidal behavior
CPT/HCPCS: 80178; 97150; 97165; Q0169